=== PATIENT | female | born 1935 | race Caucasian/White ===

== ENCOUNTER 2018-04-10 06:00 | Day surgery (SDC) | payer MEDICARE ==
[2018-04-09 12:38] LABS: BASOPHILS 0.2 % (0-2); EOSINOPHILS 1.9 % (0-7); HEMATOCRIT 42.8 % (36.0-48.0); IMMATURE GRANULOCYTES 0.3 % (0-5); MCH 31.9 pg (26.0-34.0); MCHC 32.7 g/dL (31.0-37.0); MCV 97.5 fL (80.0-100.0); MEAN PLATELET VOLUME 10.2 fL (7.4-10.4); MONOCYTES 7.9 % (2-11); NEUTROPHILS 72.7 % (40-80); PLATELET COUNT 226 10x3/uL (130-400); RBC 4.39 10x6/uL (4.00-5.40); RDW 13.5 % (11.5-14.5); WBC 10.7 10x3/uL (4.8-10.8)
[2018-04-09 13:18] LABS: CALC OSMOLALITY 282 mosm/kg (275-300); CALCIUM 9.6 mg/dL (8.5-10.1); CHLORIDE - SERUM 104 mmol/L (98-107); CREATININE - SERUM 0.7 mg/dL (0.6-1.3); GLUCOSE 94 mg/dL (74-106); POTASSIUM - SERUM 4.8 mmol/L (3.5-5.1); SODIUM 140 mmol/L (136-145); UREA NITROGEN 23 mg/dL (7-18); eGFR NON AFRICAN AMERICAN 84 mL/min (90-120)
[~2018-04-10] VITALS: Ht 154.9 cm; Wt 45.8 kg
--- NOTE | ~2018-04-10 | OP ---
PATIENT NAME: RIAZ CHIU MEDICAL RECORD: [id number] :33 LOCATION:D.OPS ADMISSION DATE: SURGEON: JUDD SCHULTZ MD DATE OF OPERATION: 04/10/2018 PREOPERATIVE DIAGNOSES: 1. Right inguinal hernia. 2. Dementia. 3. History of cerebrovascular accident. 4. Hypothyroidism. POSTOPERATIVE DIAGNOSES: 1. Right inguinal hernia. 2. Dementia. 3. History of cerebrovascular accident. 4. Hypothyroidism. PROCEDURE: Right inguinal hernia repair with extended PHS mesh. SURGEON: Judd Schultz MD REPORT OF PROCEDURE: The patient's right groin was prepped and draped in sterile fashion. An oblique incision was made above the inguinal ligament. Electrocautery was used to dissect through subcutaneous tissues to the external oblique fascia. This fascia was opened up to the external ring using electrocautery. The ilioinguinal nerve was found and high ligated. We then elevated the round ligament and this was high ligated proximally and distally with 3-0 silks. The patient had a direct hernia defect that was lateral to the insertion of the round ligament and at the base of the inguinal floor, the patient also had some laxity of the tissue consistent with a developing hernia. We opened up the preperitoneal space of Retzius through the hernia defect and placed an extended PHS mesh. This was sutured down on all 4 sides using multiple interrupted 0 Vicryls. The wound was then irrigated out with normal saline. The external oblique fascia was closed with running 2-0 Vicryl, Marcia's was closed with interrupted 3-0 Vicryl and the skin was closed with running subcutaneous 5-0 Monocryl. A 10 mL of 0.25% Marcaine with epinephrine was infused into the surrounding tissues and the wound was dressed appropriately. COMPLICATIONS: None. CONDITION: Stable. ANESTHESIA: General endotracheal and local. BLOOD LOSS: Minimal. TRANSINT:[id number] Voice Confirmation ID: [id number] DOCUMENT ID: [id number] OPERATIVE REPORT [id number] RIAZ CHIU JUDD SCHULTZ MD at 1409 CC: LUL HOANG MD [id number] DICTATION DATE: 04/10/18 0843 SHIP KEEPER: 04/10/18 1135 [facility] 04/10/18 [place] [address]
[~2018-04-10 06:00] MED LIST: ASPIRIN EC81 M1 PO; CELEXA10 MG PO; DONEPEZIL HCL5 M1 PO; EVISTA60 MG PO; SYNTHROID50 MCG PO; XALATAN 0.0052.5 ML EACH EYE
[2018-04-10 06:41] VITALS: BP 107/65; Ht 154.9 cm; Wt 45.8 kg
[2018-04-10] MEDS ORDERED: NORCO 10-325 TA1 TAB PO (08:39)
== END 2018-04-10 12:00 | disposition home or self-care (01) ==
LOC: D.OPS 06:00 → D.PAN 08:00 → D.OPS 12:00
PROVIDERS: Anesthesiology
DX: K40.90 Unilateral inguinal hernia, without obstruction or gangrene, not specified as recurrent (principal); F03.90 Unspecified dementia, unspecified severity, without behavioral disturbance, psychotic disturbance, mood disturbance, and anxiety; Z86.73 Personal history of transient ischemic attack (TIA), and cerebral infarction without residual deficits; E03.9 Hypothyroidism, unspecified; Z01.812 Encounter for preprocedural laboratory examination

== ENCOUNTER 2018-12-21 16:54 | Inpatient (IN) | payer MEDICARE ==
[~2018-12-21 16:54] MED LIST changes: +NORCO 10-325 TA1 TAB PO
--- NOTE | 2018-12-21 20:10 | NUR ---
PT ARRIVED TO UNIT VIA AMBULANCE STRETCHER. ADMITTED TO ROOM 1117B TO DR GOYAL SERVICES. PT IS ALERT TO SELF. CONFUSED TO TIME AND PLACE. TRANSFERED TO BED WITH 2MAN SHEET LIFT. 3 FAMILY MEMBERS AT BEDSIDE. SR'S ARE UP X 2 IN BED. CALL LIGHT AND BEDSIDE TABLE ARE WITHIN EASY REACH.
--- NOTE | 2018-12-21 22:03 | NUR ---
PT IS RESTING IN BED WITH EYES CLOSED. NO ACUTE DISTRESS NOTED. DAUGHTER IN OTHER BED IN ROOM.
[2018-12-21 22:37] VITALS: BP 155/58; BMI 19.5
--- NOTE | 2018-12-22 00:49 | NUR ---
RESTING IN BED WITH RESPIRATIONS UNLABOERD. NO DISTRESS NOTED. DAUGHTER IN ROOM.
--- NOTE | 2018-12-22 01:30 | NUR ---
PT RESTING IN BED WITH EYES CLOSED.
[2018-12-22 05:09] LABS: BASOPHILS 0.3 % (0-2); EOSINOPHILS 5.2 % (0-7); HEMATOCRIT 26.7 % (36.0-48.0); HEMOGLOBIN 8.8 g/dL (12-16); IMMATURE GRANULOCYTES 0.4 % (0-5); LYMPHOCYTES 14.5 % (15-50); MCH 30.1 pg (26.0-34.0); MCV 91.4 fL (80.0-100.0); MEAN PLATELET VOLUME 9.6 fL (7.4-10.4); MONOCYTES 9.7 % (2-11); NEUTROPHILS 69.9 % (40-80); RBC 2.92 10x6/uL (4.00-5.40); RDW 16.6 % (11.5-14.5); WBC 9.3 10x3/uL (4.8-10.8)
--- NOTE | 2018-12-22 05:13 | NUR ---
RESTING IN BED WITH EYES CLOSED.
[2018-12-22 05:14] LABS: PLATELET COUNT 139 10x3/uL (130-400)
[2018-12-22 05:21] LABS: CALC OSMOLALITY 284 mosm/kg (275-300); CARBON DIOXIDE 24.7 mmol/L (21.0-32.0); CHLORIDE - SERUM 110 mmol/L (98-107); CREATININE - SERUM 0.6 mg/dL (0.6-1.3); GLUCOSE 103 mg/dL (74-106); POTASSIUM - SERUM 3.5 mmol/L (3.5-5.1); SODIUM 143 mmol/L (136-145); UREA NITROGEN 12 mg/dL (7-18); eGFR NON AFRICAN AMERICAN > 90 mL/min (90-120)
[2018-12-22 08:00] VITALS: BP 123/53
--- NOTE | 2018-12-22 08:00 | NUR ---
SHIFT ASSMT COMPLETED.INCISIONS X3 TO LT HIP/LEG INTACT;DRSG'S CLEAN AND DRY.BREAKFAST GIVEN.DAUGHTER AT BEDSIDE.
[2018-12-22 10:42] VITALS: BMI 19.4
--- NOTE | 2018-12-22 12:00 | NUR ---
UP IN WC.LUNCH GIVEN.CL IN REACH.
--- NOTE | 2018-12-22 19:25 | NUR ---
PT UP IN BATHROOM WITH FAMILY MEMBER. NO DISTRESS NOTED.
[2018-12-22 20:43] VITALS: BP 115/69
--- NOTE | 2018-12-22 21:09 | NUR ---
PATIENT SLEEPING AT THIS TIME. DAUGHTER AT BEDSIDE. WILL CONTINUE TO MONITOR.
--- NOTE | 2018-12-22 22:05 | NUR ---
PT IS RESTING IN BED WITH EYES CLOSED.
--- NOTE | 2018-12-23 00:29 | NUR ---
RESTING IN BED WITH EYES CLOSED.
--- NOTE | 2018-12-23 03:30 | NUR ---
RESTING IN BED WITH EYES CLOSED.
--- NOTE | 2018-12-23 06:18 | NUR ---
PT ASSISTED UP TO BATHROOM BY HER DAUGHTER. VOIDED WITHOUT DIFFICULTY. VOICED COMPLAINT OF LEFT LEG PAIN LEVEL OF 6. MEDICATED PER SEP.
[2018-12-23 08:00] VITALS: BP 100/48
--- NOTE | 2018-12-23 08:00 | NUR ---
SHIFT ASSMT COMPLETED.
--- NOTE | 2018-12-23 12:00 | NUR ---
EATING LUNCH.IN BED.CL IN REACH.
--- NOTE | 2018-12-23 19:53 | NUR ---
PT IS RESTING IN BED WITH EYES OPEN. ALERT TO SELF. CONFUSED TO TIME AND SITUATION. PT STATED SHE HAD A VERY LARGE BLACK STOOL TODAY, AND JUST COULD NOT EAT ANYTHING AFTERWARDS, BUT THINKS SHE WILL BE ABLE TO EAT TOMORROW. SR'S ARE UP X 2 IN BED. CALL LIGHT AND BEDSIDE TABLE ARE WITHIN EASY REACH. FAMILY MEMBER STAYING IN ROOM WITH PT.
[2018-12-23 20:00] VITALS: BP 112/78
--- NOTE | 2018-12-23 22:09 | NUR ---
PATIENT RESTING QUIETLY WITH EYES CLOSED. RESPIRATIONS EVEN. NO S/S OF DISTRESS. SR UP X2. BED IN LOWEST POSITION. CALL LIGHT IN REACH.
--- NOTE | 2018-12-24 02:00 | NUR ---
RESTING QUIETLY IN BED WITH EYES CLOSED. RESPS ARE EVEN AND UNLABORED. NO ACUTE DISTRESS NOTED.
--- NOTE | 2018-12-24 04:30 | NUR ---
RESTING QUIETLY IN BED WITH EYES CLOSED.
[2018-12-24 07:42] LABS: CALC OSMOLALITY 289 mosm/kg (275-300); CALCIUM 8.5 mg/dL (8.5-10.1); CARBON DIOXIDE 25.2 mmol/L (21.0-32.0); CHLORIDE - SERUM 110 mmol/L (98-107); CREATININE - SERUM 0.6 mg/dL (0.6-1.3); GLUCOSE 101 mg/dL (74-106); POTASSIUM - SERUM 3.7 mmol/L (3.5-5.1); SODIUM 145 mmol/L (136-145); UREA NITROGEN 16 mg/dL (7-18); eGFR NON AFRICAN AMERICAN > 90 mL/min (90-120)
[2018-12-24 08:03] LABS: BASOPHILS 0.3 % (0-2); EOSINOPHILS 4.9 % (0-7); HEMATOCRIT 26.5 % (36.0-48.0); HEMOGLOBIN 8.7 g/dL (12-16); IMMATURE GRANULOCYTES 0.4 % (0-5); LYMPHOCYTES 16.4 % (15-50); MCH 30.7 pg (26.0-34.0); MCHC 32.8 g/dL (31.0-37.0); MCV 93.6 fL (80.0-100.0); RBC 2.83 10x6/uL (4.00-5.40); RDW 16.1 % (11.5-14.5); WBC 6.9 10x3/uL (4.8-10.8)
[2018-12-24 08:07] LABS: PLATELET COUNT 185 10x3/uL (130-400)
[2018-12-24 08:33] VITALS: BP 124/49
--- NOTE | 2018-12-24 08:40 | NUR ---
SITTING UP IN BED FOR BREAKFAST. DAUGHTER IN ROOM WITH HER TO HELP OUT. PT IS PLEASANT AND COOPERATIVE BUT CONFUSED. SHE SAID SHE HAD JUST EATEN BREAKFAST AND DID NOT NEED ANOTHER TRAY....DTR SAID NO MOM YOU ATE BREAKFAST YESTERDAY. YOU NEED TO EAT AGAIN TODAY. PT SAID OK AND SAT UP IN BED TO EAT. HER RECALL IS VERY POOR. SHE DENIES PAIN. INCISIONS ARE COVERED AND NO S/S INFECTION NOTED.
--- NOTE | 2018-12-24 09:46 | NUR ---
Nutrition follow up Pt is not eating well but will drink [place]oomis Boost Will add Boost to all trays RD following
--- NOTE | 2018-12-24 17:18 | NUR ---
LAYING ON SIDE IN HER BED IN HER ROOM. NO FAMILY PRESENT RIGHT NOW. CALL LIGHT IN REACH
--- NOTE | 2018-12-24 20:00 | NUR ---
PT ASSISTED TO THE BATHROOM WITH MIN ASSIST. SHE CHANGED INTO PAJAMAS WITH MIN ASSIST, AND ASSISTED BACK TO BED. DRESSINGS TO LEFT HIP ARE CDI. NO DRAINAGE NOTED. SR'S ARE UP X 2 IN BED. CALL LIGHT AND BEDSIDE TABLE ARE WITHIN EASY REACH.
--- NOTE | 2018-12-25 00:01 | NUR ---
PT RESTING IN BED WITH EYES CLOSED.
--- NOTE | 2018-12-25 02:09 | NUR ---
RESTING IN BED WITH EYES CLOSED.
--- NOTE | 2018-12-25 06:01 | NUR ---
PT RESTING IN BED WITH EYES OPEN. NO NEEDS VOICED.
[2018-12-25 08:00] VITALS: BP 103/54
--- NOTE | 2018-12-25 10:12 | NUR ---
Nutrition follow up Regular diet ordered with 25% intake of meals Spoke with pt about food preferences Pt understands that nutrition is important, but reports food is not like at home. Assisted with ordering meals on menu. Pt has snacks available in room. RD following
--- NOTE | 2018-12-25 13:19 | NUR ---
LAYING IN BED RESTING QUIETLY. SIDE RAILS UP X2. BED IN LOWEST POSITION. FAMILY IN ROOM WITH PT. LEFT HIP HAS X2 DSG THAT ARE INTACT. NO S/S INFECTION OR DRAINAGE. CALL LIGHT IN REACH
--- NOTE | 2018-12-25 18:43 | NUR ---
RESTING QUIETLY ON RT SIDE. DENIES NEEDS. CALL LIGHT IN REACH. BED ALARM IN USE.
--- NOTE | 2018-12-25 20:55 | NUR ---
PM MEDS GIVEN ORDERED.
[2018-12-25 21:46] VITALS: BP 101/47
--- NOTE | 2018-12-26 00:25 | NUR ---
REST QUIETLY IN BED, RESP EVEN, NO S/S OF DISTRESS. CONTINUE PLAN OF CARE.
--- NOTE | 2018-12-26 01:06 | NUR ---
ASSISTED PT TO BATHROOM AND BACK TO BED.
--- NOTE | 2018-12-26 03:45 | NUR ---
PT IS AWAKE AND IRRITABLE, C/O PAIN IN BACK, A LEVEL OF 5. CHECKED THE PAIN MED SCHEDULE, THE TIME FOR NEXT DOSE IS 0452. PT WANT TO CALL AND TALK TO HER DAUGHTER, PT DIAL HER DAUGHTER'S PHONE NUMBER AND LINE IS BUSY. ASSISTED PT TO BATHROOM AND BACK TO BED. PT CALM DOWN AND REST IN BED QUIETLY.
[2018-12-26 07:27] LABS: BASOPHILS 0.2 % (0-2); EOSINOPHILS 1.7 % (0-7); HEMATOCRIT 27.5 % (36.0-48.0); HEMOGLOBIN 8.9 g/dL (12-16); IMMATURE GRANULOCYTES 0.4 % (0-5); LYMPHOCYTES 12.9 % (15-50); MCH 30.1 pg (26.0-34.0); MCHC 32.4 g/dL (31.0-37.0); MCV 92.9 fL (80.0-100.0); MEAN PLATELET VOLUME 9.6 fL (7.4-10.4); MONOCYTES 9.5 % (2-11); NEUTROPHILS 75.3 % (40-80); RBC 2.96 10x6/uL (4.00-5.40); RDW 15.6 % (11.5-14.5)
--- NOTE | 2018-12-26 08:00 | NUR ---
SHIFT ASSMT COMPLETED.
[2018-12-26 08:01] LABS: PLATELET COUNT 253 10x3/uL (130-400)
[2018-12-26 08:02] LABS: CALC OSMOLALITY 282 mosm/kg (275-300); CALCIUM 8.5 mg/dL (8.5-10.1); CHLORIDE - SERUM 106 mmol/L (98-107); CREATININE - SERUM 0.7 mg/dL (0.6-1.3); GLUCOSE 103 mg/dL (74-106); POTASSIUM - SERUM 4.1 mmol/L (3.5-5.1); SODIUM 141 mmol/L (136-145); UREA NITROGEN 17 mg/dL (7-18); eGFR NON AFRICAN AMERICAN 84 mL/min (90-120)
[2018-12-26 08:33] VITALS: BP 131/62
[2018-12-26 09:40] LABS: CKMB 0.6 U/L (0.0-3.6); CREATINE KINASE 83 UL (21-215)
[2018-12-26 09:41] LABS: TROPONIN-I < 0.017 ng/mL (0.000-0.060)
--- NOTE | 2018-12-26 12:00 | NUR ---
IN BED FOR LUNCH.DAUGHTERS VISITING.
--- NOTE | 2018-12-26 12:55 | RHP ---
PATIENT: RIAZ CHIU MEDICAL RECORD: [id number] ACCOUNT: [id number] LOCATION:[facility] D.[id number] : 31 ADMISSION DATE: 12/21/18 REHABILITATION HISTORY AND PHYSICAL EXAMINATION POST ADMISSION PHYSICIAN EXAMINATION POST ADMISSION PHYSICAL EXAMINATION AND HISTORY AND PHYSICAL DATE OF ADMISSION: 12/21/2018 ADMITTING DIAGNOSIS: For orthopedic closed comminuted intertrochanteric fracture of the proximal end of the femur, status post TFN nail. HISTORY OF PRESENT ILLNESS: The patient is admitted to inpatient rehab for a closed comminuted intertrochanteric fracture at the end of her left femur status post nailing. She was outside walking with her daughter, lost her balance, sustained a fall with immediate pain, inability to ambulate, was brought in via EMS. She had a closed comminuted intertrochanteric fracture of the proximal end of her left femur. Orthopedic surgery was consulted. She underwent gamma nailing. She had been set up for carpal tunnel to her right wrist and hand. She also has had a fall, so she had some problems with her wrist and hand impairments. She did not any require supplemental O2. She had a blood transfusion. She has had acute blood loss anemia with H&H of 8 and 25.6, acute pain, postop hypotension, acute postop urinary retention. She has got a history of early onset Alzheimer's dementia. She got impaired mobility, debility, weakness, high-fall risk, and self-care deficits. There are all barriers to her discharge home at this time. She lives at home alone, was independent with mobility and ADLs. She is set up for mod assist with her ADLs, mod assist to total assist for mobility. She and her family hopefully will plan on her returning home. She does have caregivers in assisted living. Comorbidities in this patient include closed comminuted intertrochanteric fracture of the left femur, acute fall, hyperlipidemia, dementia, hypothyroidism, Alzheimer's dementia, acute postop blood loss anemia, acute pain, deconditioning, glaucoma, depression, gastroesophageal reflux disease, anxiety, inflammatory arthritis, osteoporosis, and . PAST MEDICAL HISTORY: Significant for hypothyroidism, hyperlipidemia, dementia. She has had a history of prolapsed bladder. She has got carpal tunnel, glaucoma, CVA in the past, depression, anxiety, chronic vascular disease, inflammatory arthritis, and osteoporosis. PAST SURGICAL HISTORY: Includes thyroidectomy, cataracts removed, hysterectomy, and gallbladder surgery. ALLERGIES: MORPHINE. CURRENT MEDICATIONS: She is on Xarelto 10 mg daily, citalopram 10 mg daily, Synthroid 75 mcg daily. She is on senna 1 tab b.i.d. She is on Xalatan eye drops daily at bedtime, Aricept 10 mg at bedtime, Zofran 4 mg every 4 hours p.r.n., polyethylene glycol 17 grams in 8 ounces of water daily, and Maben 10/325 one tab every 4 hours p.r.n. pain. HABITS: No alcohol or tobacco use. FAMILY HISTORY: Noncontributory. HISTORY AND PHYSICAL [id number] APPLERIAZ KIMBERLEY SOCIAL HISTORY: The patient hopes to return back home. Once again, she will have some caregivers and some assistance when she returns. REVIEW OF SYSTEMS: GENERAL: Does complain of little weakness and fatigue. HEENT: Denies cold, cough, or congestion. CARDIOVASCULAR: Denies chest pain. PHYSICAL EXAMINATION: VITAL SIGNS: Stable, afebrile. GENERAL: An elderly female, in no acute distress upon exam. HEENT: Normocephalic and atraumatic. Mucosa moist. NECK: Supple. No lymphadenopathy. LUNGS: Clear at this time. HEART: Regular rate and rhythm. ABDOMEN: Benign. EXTREMITIES: Postop swelling appears normal. NEUROLOGIC: She does have a little bit of slow mentation, but has been very appropriate. She does have noted proximal muscle weakness. LABORATORY DATA: Her white count is 9.3, H&H of 8.8 and 26.7, and platelet count is noted to be 139. Sodium 143, potassium 4.5, BUN and creatinine of 12 and 0.6, and blood sugar is noted to be 103. ASSESSMENT: This is an 83-year-old female patient admitted to rehab with a working diagnosis of status post left hip fracture and TFN nailing. The patient has potential to make improvement. We will institute the following multidisciplinary therapies including, but not limited to, physical, occupational, respiratory, speech, nutritional services, prosthetics, and orthotics. Given her complex medical condition and risk for more complications, rehabilitation services cannot be provided at a lower level of care such as a skilled nurse facility. PLAN: 1. Admit to [facility] for inpatient therapy to include the following disciplines; A. Physical therapy to improve gait, all transfer skills, and bed mobility to modified independent level. B. Occupational therapy to modified independent level. C. Case management to assist with discharge planning and placement options. D. Nutrition to assist with nutritional needs. E. Rehabilitation nursing to assist in monitoring the patient's underlying medical conditions and to assist with any type of bowel or bladder management. 2. The patient's current medications and medical care will be continued. 3. The patient will be placed on standard fall precautions. 4. Estimated length of stay is approximately 7-10 days. 5. We will discuss the patient during care team staff meeting this week. We watch her H&H closely and adjust any medications as needed and will see again in the a.m. TRANSINT:[id number] Voice Confirmation ID: [id number] DOCUMENT ID: [id number] BRENT notes whether there has been none or any medical/functional HISTORY AND PHYSICAL [id number] RIAZ CHIU change since admission: - No change since pre-admission screen. BRENT attests patient continues to be appropriate for IRF: - Continues to be appropriate. YINA CHACON MD at 1255 CC: [id number] DICTATION DATE: 12/22/18 0838 DIALYSIS NURSE: 12/22/18 1244 ADM IN [place] [id number] [place] [address]
--- NOTE | 2018-12-26 16:00 | NUR ---
RESTING IN BED ON SIDE.
[2018-12-26 19:00] VITALS: BP 121/60
--- NOTE | 2018-12-26 19:20 | NUR ---
GREETED PATIENT AND INTRODUCED MYSELF. PATIENT IS LAYING IN BED IN SUPINE POSITION. DENIES ANY NEEDS AT THIS TIME. CALL LIGHT IN REACH.
--- NOTE | 2018-12-27 01:23 | NUR ---
ASSISTED PATIENT TO BATHROOM. BACK TO BED AND REPOSITIONED FOR COMFORT. CALL LIGHT IN REACH.
--- NOTE | 2018-12-27 06:29 | NUR ---
PATIENT WAS APPROACHED TWICE TO SEE IF SHE WOULD TAKE A SHOWER. PATIENT STATED SHE WAS TOO SLEEPY TO TAKE A SHOWER AT THIS TIME.
[2018-12-27 08:00] VITALS: BP 122/62
--- NOTE | 2018-12-27 08:00 | NUR ---
SHIFT ASSMT COMPLETED.INCONT OF BM;LOOSE ODOROUS STOOL.SHOWERED AND DRESSED.BREAKFAST GIVEN.ONLY FEW BITES TAKEN.CL IN REACH.
--- NOTE | 2018-12-27 12:00 | NUR ---
REFUSES LUNCH.BOOST OPENED AND GIVEN.TAKING SIPS.
[2018-12-27 19:00] VITALS: BP 106/50
--- NOTE | 2018-12-27 20:05 | NUR ---
GREETED PATIENT AND INTRODUCED MYSELF. PATIENT LAYING IN BED WATCHING TV. DENIES ANY NEEDS AT THIS TIME. CALL LIGHT IN REACH.
--- NOTE | 2018-12-27 22:57 | NUR ---
PATIENT STARTED VOMITING. PATIENT CLEANED AND PRN ZOFRAN ADMINISTERED. WCTM. CALL LIGHT IN REACH.
--- NOTE | 2018-12-28 00:56 | NUR ---
PATIENT RESTING QUIETLY. NO S/S OF NAUSEAU OR VOMITING. RESPIRATIONS EVEN. NO S/S OF DISTRESS. CALL LIGHT IN REACH.
--- NOTE | 2018-12-28 03:00 | NUR ---
PATIENT AWAKE AND ASSISTED TO BATHROOM USING WHEELCHAIR. BACK TO BED AND REPOSITIONED FOR COMFORT. SR UP X 2. BED IN LOWEST POSITION. ALARM ON AND WORKING PROPERLY. CALL LIGHT IN REACH.
--- NOTE | 2018-12-28 08:04 | NUR ---
SITTING UP IN BED, BREAKFAST TRAY READY. SHE STATES SHE IS NOT VERY HUNGRY BUT WILL TRY TO DRINK SOME JUICE. SHE DENIES INCREASED PAIN TO LEFT HIP. X2 INCISIONS TO LEFT HIP NOTED WITH HEATH. CALL LIGHT IN REACH.
[2018-12-28 08:20] VITALS: BP 107/51
[2018-12-28 09:00] LABS: BASOPHILS 0.3 % (0-2); EOSINOPHILS 1.2 % (0-7); HEMATOCRIT 30.4 % (36.0-48.0); HEMOGLOBIN 9.7 g/dL (12-16); IMMATURE GRANULOCYTES 0.5 % (0-5); LYMPHOCYTES 9.9 % (15-50); MCH 30.6 pg (26.0-34.0); MCHC 31.9 g/dL (31.0-37.0); MCV 95.9 fL (80.0-100.0); MEAN PLATELET VOLUME 9.5 fL (7.4-10.4); MONOCYTES 8.5 % (2-11); NEUTROPHILS 79.6 % (40-80); RBC 3.17 10x6/uL (4.00-5.40); RDW 15.7 % (11.5-14.5); WBC 10.6 10x3/uL (4.8-10.8)
[2018-12-28 09:04] LABS: PLATELET COUNT 353 10x3/uL (130-400)
[2018-12-28 09:21] LABS: CALC OSMOLALITY 286 mosm/kg (275-300); CALCIUM 8.9 mg/dL (8.5-10.1); CARBON DIOXIDE 29.3 mmol/L (21.0-32.0); CHLORIDE - SERUM 105 mmol/L (98-107); CREATININE - SERUM 0.7 mg/dL (0.6-1.3); GLUCOSE 96 mg/dL (74-106); SODIUM 143 mmol/L (136-145); UREA NITROGEN 17 mg/dL (7-18); eGFR NON AFRICAN AMERICAN 84 mL/min (90-120)
--- NOTE | 2018-12-28 12:03 | NUR ---
PT IS C-DIFF NEGATIVE. ISOLATION REMOVED
--- NOTE | 2018-12-28 13:08 | NUR ---
REFUSED LUNCH. STATED SHE JUST WAS NOT HUNGERY. REFUSED TO DRINK PROTEIN SHAKE. SITTING UP IN WC
--- NOTE | 2018-12-28 19:41 | NUR ---
PT RESTING IN BED WITH EYES CLOSED. OPENED EYES WHILE I WAS IN ROOM. PT IS ALERT TO SELF. STATES: "SASHA STILL GOT A WAYS TO GO, BUT I THINK IM GETTING A LOT BETTER. NO NEEDS VOICED. SR'S ARE UP X 2 IN BED. CALL LIGHT AND BEDSIDE TABLE ARE WITHIN EASY REACH.
[2018-12-28 19:59] VITALS: BP 114/55
--- NOTE | 2018-12-28 21:37 | NUR ---
PT IS RESTING IN BED WITH EYES CLOSED. NO ACUTE DISTRESS NOTED.
--- NOTE | 2018-12-29 00:14 | NUR ---
RESTING IN BED WITH EYES CLOSED AND RESPIRATIONS UNLABORED. NO DISTRESS NOTED. CALL LIGHT IN REACH.
--- NOTE | 2018-12-29 03:40 | NUR ---
PT ASSISTED TO THE BATHROOM WITH MIN ASSIST. NO FURTHER NEEDS VOICED.
--- NOTE | 2018-12-29 05:58 | NUR ---
PT RESTING IN BED WITH EYES CLOSED. AWOKE EASILY TO VERBAL STIMULI. TOLERATED AM MED WITHOUT DIFFICULTY. NO NEEDS VOICED.
[2018-12-29 08:51] VITALS: BP 96/54
--- NOTE | 2018-12-29 10:44 | NUR ---
RESTING QUIETLY IN BED. DID NOT EAT BREAKFAST. DENIES HUNGER.
--- NOTE | 2018-12-29 19:30 | NUR ---
PT IS RESTING IN BED WITH EYES CLOSED. OPENED EYES QUICKLY TO VERBAL STIMULI. PT IS ALERT, BUT VERY CONFUSED. SHE STATED SHE KEEPS SEEING HER CAT RUN ACROSS THE ROOM, AND WISHES SOMEONE WOULD PUT IT OUTSIDE. I ASSURED PT THAT HER CAT WAS NOT HERE. SR'S ARE UP X 2 IN BED. CALL LIGHT AND BEDSIDE TABLE ARE WITHIN EASY REACH.
--- NOTE | 2018-12-29 21:38 | NUR ---
PATIENT SLEEPING AT THIS TIME.
--- NOTE | 2018-12-30 02:21 | NUR ---
RESTING IN BED WITH EYES CLOSED.
--- NOTE | 2018-12-30 06:04 | NUR ---
PT AWOKE EASILY TO VERBAL STIMULI. PLEASANTLY CONFUSED. TALKING ABOUT THE STORMS SHE THOUGHT WE HAD OVERNIGHT. PT IS CALM AND COOPERATIVE.
[2018-12-30 07:15] VITALS: BP 122/49
--- NOTE | 2018-12-30 08:30 | NUR ---
REFUSED TO EAT BREAKFAST. GOT UPSET WHEN ENCOURAGED TO EAT. IS CONFUSED AND SAID SHE DID NOT WANT TO BE BOTHERED. INCONT OF URINE AT TIMES. BED IN LOWEST POSITION, SIDE RAILS UP X2. CALL LIGHT IN REACH
--- NOTE | 2018-12-30 16:35 | NUR ---
DTR JUST VISITED. PT IS CALMER AND MORE PLEASANT. STILL DENIES HUNGER. CALL LIGHT IN REACH
[2018-12-30 19:55] VITALS: BP 114/63
--- NOTE | 2018-12-30 20:00 | NUR ---
PT IS RESTING IN BED WITH EYES OPEN. ALERT TO SELF. CONFUSED TO TIME, PLACE AND SITUATION. CAN TALK ABOUT SOME CURRENT EVENTS, BUT IF THEY ALL HAPPENED TODAY, INSTEAD OF A WEEK AGO. SHE IS PLEASANT AND COOPERATIVE WITH STAFF. VSS. SR'S ARE UP X 2 IN BED. CALL LIGHT AND BEDSIDE TABLE ARE WITHIN ESY REACH.
--- NOTE | 2018-12-30 21:40 | NUR ---
PATIENT ASLEEP AT THIS TIME. WILL CONTINUE TO MONITOR.
--- NOTE | 2018-12-31 02:45 | NUR ---
RESTING IN BED WITH EYES CLOSED.
[2018-12-31 06:29] LABS: BASOPHILS 0.4 % (0-2); EOSINOPHILS 2.6 % (0-7); HEMATOCRIT 31.4 % (36.0-48.0); HEMOGLOBIN 9.9 g/dL (12-16); IMMATURE GRANULOCYTES 0.7 % (0-5); LYMPHOCYTES 14.9 % (15-50); MCH 30.2 pg (26.0-34.0); MCHC 31.5 g/dL (31.0-37.0); MCV 95.7 fL (80.0-100.0); MONOCYTES 9.4 % (2-11); PLATELET COUNT 364 10x3/uL (130-400); RBC 3.28 10x6/uL (4.00-5.40); RDW 15.8 % (11.5-14.5); WBC 7.3 10x3/uL (4.8-10.8)
[2018-12-31 06:47] LABS: CALC OSMOLALITY 278 mosm/kg (275-300); CALCIUM 8.8 mg/dL (8.5-10.1); CARBON DIOXIDE 25.9 mmol/L (21.0-32.0); CHLORIDE - SERUM 105 mmol/L (98-107); CREATININE - SERUM 0.7 mg/dL (0.6-1.3); GLUCOSE 77 mg/dL (74-106); POTASSIUM - SERUM 3.8 mmol/L (3.5-5.1); SODIUM 140 mmol/L (136-145); UREA NITROGEN 15 mg/dL (7-18); eGFR NON AFRICAN AMERICAN 84 mL/min (90-120)
[2018-12-31 08:00] VITALS: BP 113/51
--- NOTE | 2018-12-31 08:20 | NUR ---
ATE FEW BITES OF BREAKFAST. DENIES BEING ABLE TO EAT MORE. DRINKING WATER OFTEN. STILL VOIDING AND HAVING BM'S DAILY EVEN WITH DECREASED APPETITE. CALL LIGHT IN REACH
--- NOTE | 2018-12-31 12:59 | NUR ---
SITTING UP IN BED FOR LUNCH. APPETITE STILL VERY POOR. DENIES DIFFICULTY SWALLOWING BUT STATES EVERYTHING IS TOO "RICH" TASTING AND DOES NOT SOUND GOOD. OFFERED HER DIETARY CONSULT, SHE DECLINED. DENIES N/V. STILL CONFUSED AND HAS POOR RECALL. LEFT HIP HEATH X3 AREAS INTACT AND HAS NO S/S INFECTION. CALL LIGHT IN REACH
--- NOTE | 2018-12-31 17:12 | NUR ---
RESTING COMFORTABLY IN BED. STILL HAS POOR APPETITE. MIN ASST TO TRANSFER. CALL LIGHT IN REACH
[2018-12-31 19:00] VITALS: BP 111/54
--- NOTE | 2018-12-31 19:29 | NUR ---
PT IS RESTING IN BED WITH EYES OPEN. ALERT TO SELF. PLEASANTLY CONFUSED TO TIME AND PLACE. PT IS CALM AND COOPERATIVE WITH STAFF. INCISIONS TO LEFT HIP ARE WELL APPROXIMATED AND HEALING WELL. SR'S ARE UP X 3 IN BED. CALL LIGHT AND BEDSIDE TABLE ARE WITHIN EASY REACH.
--- NOTE | 2018-12-31 21:44 | NUR ---
PT RESTING QUIETLY IN BED WITH EYES CLOSED. RESPS ARE EVEN AND UNLABORED. NO ACUTE DISTRESS NOTED.
--- NOTE | 2019-01-01 00:01 | NUR ---
PT RESTING IN BED WITH EYES CLOSED.
--- NOTE | 2019-01-01 02:28 | NUR ---
RESTING IN BED WITH RESPIRATIONS UNALBORED. NO DISTRESS NOTED. CALL LIGHT IN REACH.
--- NOTE | 2019-01-01 06:00 | NUR ---
PT IS RESTING IN BED WITH EYES CLOSED. NO DISTRESS NOTED.
[2019-01-01 08:00] VITALS: BP 121/56
--- NOTE | 2019-01-01 08:00 | NUR ---
SHIFT ASSMT COMPLETED.UP OOB TO BATHROOM.INCISIONS WITH HEATH INTACT.HEALING WELL.
--- NOTE | 2019-01-01 10:40 | NUR ---
Nutrition follow up Regular diet with 20% average po intake Pt reports that Boost causes diarrhea and she has not been drinking this supplement lately Pt has snacks including peanut butter available in room Encouraged peanut butter as it is calorically dense and therefore a small portion will provide many calories RD following
--- NOTE | 2019-01-01 12:00 | NUR ---
SITTING UP IN CHAIR EATING LUNCH.CL IN REACH.
[2019-01-01 19:00] VITALS: BP 98/54
--- NOTE | 2019-01-01 19:30 | NUR ---
PT RESTING QUIETLY. CALL LIGHT IN REACH. NO DISTRESS NOTED AT THIS TIME. BED IN LOW. SIDE RAILS X2. RESP EVEN AND UNLABORED. WCTM
--- NOTE | 2019-01-02 00:20 | NUR ---
ASSISTED TO AND FROM BATHROOM. DENIES FURHTER NEEDS. BACK IN BED. CL IN REACH. WCTM
--- NOTE | 2019-01-02 03:10 | NUR ---
PT RESTING QUIETLY. CALL LIGHT IN REACH. NO DISTRESS NOTED. CPOC
[2019-01-02 07:03] LABS: BASOPHILS 0.3 % (0-2); EOSINOPHILS 3.8 % (0-7); HEMATOCRIT 30.3 % (36.0-48.0); HEMOGLOBIN 9.6 g/dL (12-16); IMMATURE GRANULOCYTES 0.5 % (0-5); LYMPHOCYTES 15.6 % (15-50); MCH 30.2 pg (26.0-34.0); MCHC 31.7 g/dL (31.0-37.0); MCV 95.3 fL (80.0-100.0); MEAN PLATELET VOLUME 8.8 fL (7.4-10.4); MONOCYTES 10.9 % (2-11); NEUTROPHILS 68.9 % (40-80); PLATELET COUNT 339 10x3/uL (130-400); RBC 3.18 10x6/uL (4.00-5.40); RDW 15.8 % (11.5-14.5); WBC 5.9 10x3/uL (4.8-10.8)
[2019-01-02 07:24] LABS: CALC OSMOLALITY 277 mosm/kg (275-300); CALCIUM 8.6 mg/dL (8.5-10.1); CARBON DIOXIDE 26.3 mmol/L (21.0-32.0); CHLORIDE - SERUM 105 mmol/L (98-107); CREATININE - SERUM 0.7 mg/dL (0.6-1.3); GLUCOSE 85 mg/dL (74-106); POTASSIUM - SERUM 3.7 mmol/L (3.5-5.1); SODIUM 140 mmol/L (136-145); UREA NITROGEN 12 mg/dL (7-18); eGFR NON AFRICAN AMERICAN 84 mL/min (90-120)
--- NOTE | 2019-01-02 08:00 | NUR ---
UP OOB TO THERAPY FOR BREAKFAST.SHIFT ASSMT COMPLETED.
[2019-01-02 08:46] VITALS: BP 137/53
--- NOTE | 2019-01-02 09:52 | NUR ---
ORDER FAXED TO [facility] FOR A ROLLING WALKER AND A BEDSIDE COMMODE TO BE DELIVERED TO PATIENT ROOM.
--- NOTE | 2019-01-02 11:42 | NUR ---
PATIENT ADMITTED TO REHAB FROM AN OUTSIDE FACILITY. PATIENT PCP IS DR. RILEY HOANG IN [facility]. DISCHARGE PLANS ARE FOR PATIENT TO RETURN HOME AT DISCHARGE. WILL CONTINUE TO FOLLOW WITH PATIENT.
--- NOTE | 2019-01-02 12:00 | NUR ---
FEW BITES OF MEAL TAKEN.
--- NOTE | 2019-01-02 16:00 | NUR ---
SITTING UP IN CHAIR.CL IN REACH.
--- NOTE | 2019-01-02 19:30 | NUR ---
PT LYING IN BED READING NEWSPAPER. BED IN LOW SIDE RAILS X2. BED ALARM ON. CONFUSED AND ALERT. LUNGS CLEAR. BOWEL ACTIVE X4. RESP EVEN AND UNLABORED. CALL LIGHT IN REACH. DENIES NEEDS AT THIS TIME. TM
[2019-01-02 20:41] VITALS: BP 108/48
--- NOTE | 2019-01-03 00:20 | NUR ---
PT RESTING QUIETLY. CALL LIGHT IN REACH. NO DISTRESS NOTED. WCTM
--- NOTE | 2019-01-03 03:20 | NUR ---
PT RESTING QUIETLY. CALL LIGHT IN REACH. RESP EVEN AND UNLABORED. NO DISTRESS NOTED. WCTM
[2019-01-03 08:12] VITALS: BP 124/56
[2019-01-03] MEDS ORDERED: Aricept PO (08:53)
[2019-01-03] MEDS ORDERED: HYDROCODON-ACE1 EAC7 PO (08:54)
--- NOTE | 2019-01-03 09:24 | NUR ---
PATIENT DISCHARGING HOME TO THE [facility]. [facility] WILL PROVIDE THERAPY AT HOME. [facility] DELIVER A WALKER AND BEDSIDE COMMODE. DR. RILEY HOANG 01/09/19 @ 2:00, DR. ZAVALA 01/08/19 @ 2:30. PATIENT [facility] AND [facility] FORMS SIGNED, COPY GIVEN TO PATIENT AND FILED IN CHART. DSICHARGE INSTRUCTIONS WITH FIM DATA FAXED TO PCP, HOME HEALTH AND REVIEWED WITH PATIENT
== END 2019-01-03 10:30 | disposition home health service (06) | DRG 560 ==
LOC: D.REHAB 16:54
PROVIDERS: ADMIT Emergency Medicine; ATTEND Emergency Medicine
DX: S72.142D Displaced intertrochanteric fracture of left femur, subsequent encounter for closed fracture with routine healing (principal); D62 Acute posthemorrhagic anemia; W19.XXXD Unspecified fall, subsequent encounter; E78.5 Hyperlipidemia, unspecified; E03.9 Hypothyroidism, unspecified; G30.9 Alzheimer's disease, unspecified; F02.80 Dementia in other diseases classified elsewhere, unspecified severity, without behavioral disturbance, psychotic disturbance, mood disturbance, and anxiety; K21.9 Gastro-esophageal reflux disease without esophagitis; F41.8 Other specified anxiety disorders; M81.0 Age-related osteoporosis without current pathological fracture; H40.9 Unspecified glaucoma; R09.02 Hypoxemia; G56.01 Carpal tunnel syndrome, right upper limb; R33.9 Retention of urine, unspecified